=== PATIENT | female | born 1965 | race Caucasian/White ===

== ENCOUNTER 2021-03-05 23:37 | Emergency (ER) | payer MEDICARE, OTHER ==
[~2021-03-05] VITALS: Ht 152.4 cm; Wt 142.9 kg
[~2021-03-05 23:37] MED LIST: ABILIFY15 MG PO; CELEBREX100 MG PO; CYMBALTA30 MG PO; CYMBALTA60 MG PO; DITROPAN XL5 MG PO; HYDRALAZINE HCL25 MG PO; HYDROXYZINE HCL50 MG PO; LEVOTHYROXINE75 MCG PO; OMEPRAZOLE20 MG PO; OMEPRAZOLE40 MG PO; PATANASE30.5 GM; SYMBICORT 160-4.6 GM INH; VICTOZA 3-0.6 MG/0.1 INJ; Z.0.EFFEXOR75 MG PO; Z.0.HYDROXYCHLOROQ20 PO; Z.0.LISINOPRIL10 MG PO; Z.0.MELOXICAM15 MG PO; Z.0.SIMVASTATIN10 MG PO; Z.0.TRAZODONE HCL50 PO; Z.0.VERAMYST10 GM INH; Z.1.TIZANIDINE HCL4 PO; Z.2.METFORMIN HCL500 PO; [UNRECOGNIZED DRUG - OTHER]
[2021-03-06] MEDS: BELLADONNA ALK/PHENOBARBITAL 5 ML UDC PO ONE (00:26)
[2021-03-06] MEDS: MAGNESIUM/ALUMINUM/SIMETHICONE 30 ML UDC PO ONE (00:26)
[2021-03-06] MEDS: LIDOCAINE VISC 2% SOLN 15 ML UDC PO ONE (00:26)
[2021-03-06] MEDS: ONDANSETRON HCL INJ 2MG/ML 2ML 2 MG/ML VIAL IV STA (00:26)
[2021-03-06] MEDS ORDERED: BELLADONNA ALK/PHENOBARBITAL 5 ML UDC ONE (00:30)
[2021-03-06] MEDS ORDERED: MAGNESIUM/ALUMINUM/SIMETHICONE 30 ML UDC ONE (00:30)
[2021-03-06] MEDS ORDERED: ONDANSETRON HCL INJ 2MG/ML 2ML 2 MG/ML VIAL ONE ×2 (00:30→03:40)
[2021-03-06 00:46] LABS: BASOPHILS # (AUTO) 0.1 (0.0-0.1); BASOPHILS % 0.7 % (0.0-1.0); EOSINOPHILS # (AUTO) 0.3 (0.0-0.4); EOSINOPHILS % 1.9 % (0.0-6.0); HEMOGLOBIN 13.9 g/dL (12.0-16.0); LYMPHOCYTES # (AUTO) 3.5 (1.0-3.2); LYMPHOCYTES % 22.6 % (18.0-39.1); MEAN CORPUSCULAR HEMOGLOBIN 30.2 pg (28-32); MEAN CORPUSCULAR HGB CONC 32.3 g/dL (31-35); MEAN CORPUSCULAR VOLUME 93.5 fL (81-99); MONOCYTES # (AUTO) 1.4 (0.2-0.8); MONOCYTES % 9.1 % (4.4-11.3); NEUTROPHILS # (AUTO) 10.1 (2.1-6.9); NEUTROPHILS % 65.2 % (38.7-80.0); PLATELET COUNT 421 x10e3/uL (140-360); RED CELL DISTRIBUTION WIDTH 13.9 % (11.7-14.4)
[2021-03-06 00:58] LABS: AMYLASE 21 U/L (25-125); LIPASE 18 U/L (8-78)
[2021-03-06 01:23] LABS: ALBUMIN 3.7 g/dL (3.5-5.0); ALBUMIN/GLOBULIN RATIO 1.1 (0.8-2.0); CALCIUM 9.1 mg/dL (8.4-10.2)
[2021-03-06 01:29] LABS: CREATINE KINASE MB 1.9 ng/mL (0-5.0)
[2021-03-06 01:37] LABS: ANION GAP 17.5 mmol/L (8-16); CREATININE, SERUM 0.74 mg/dL (0.57-1.11); POTASSIUM 3.5 mmol/L (3.5-5.1)
[2021-03-06] MEDS ORDERED: IOPAMIDOL 370 MG/ML 200 ML INFUS..BTL INJ ONE (02:17)
[2021-03-06] MEDS ORDERED: SODIUM CHLORIDE 0.9% 50ML 50 ML ONE (02:17)
== END 2021-03-06 03:00 | disposition home or self-care (01) ==
LOC: ER 03-06 00:16
DX: K29.70 Gastritis, unspecified, without bleeding (principal); G89.29 Other chronic pain; R10.10 Upper abdominal pain, unspecified; M54.9 Dorsalgia, unspecified; K21.9 Gastro-esophageal reflux disease without esophagitis; E03.9 Hypothyroidism, unspecified; J45.909 Unspecified asthma, uncomplicated; M19.90 Unspecified osteoarthritis, unspecified site; R06.81 Apnea, not elsewhere classified; F31.9 Bipolar disorder, unspecified; Z79.899 Other long term (current) drug therapy; Z98.84 Bariatric surgery status
CPT/HCPCS: 36415; 74177; 80053; 82150; 82550; 82553; 83690; 84484; 85025; 93005; 99284; C9113; J2405; Q9967

== ENCOUNTER 2021-03-09 17:32 | Emergency (ER) | payer OTHER ==
[~2021-03-09] VITALS: Ht 152.4 cm; Wt 142.9 kg
[2021-03-09] MEDS ORDERED: DEXAMETHASONE SOD PHOS 10 MG/1 ML VIAL IV ONE (18:15)
[2021-03-09] MEDS ORDERED: ALBUTEROL/IPRATROPIUM 3 ML NEB NEB ONE (18:15)
[2021-03-09] MEDS ORDERED: SODIUM CHLORIDE 0.9% IV ONE (18:30)
[2021-03-09] MEDS ORDERED: DEXAMETHASONE PHOS IV ONE (18:30)
[2021-03-09] MEDS ORDERED: DEXAMETHASONE SOD PHOS 10 MG/1 ML VIAL IM ONE (18:45)
== END 2021-03-09 19:10 | disposition home or self-care (01) ==
LOC: ER 18:07
DX: J45.901 Unspecified asthma with (acute) exacerbation (principal); E03.9 Hypothyroidism, unspecified; F31.9 Bipolar disorder, unspecified; G47.30 Sleep apnea, unspecified; Z98.84 Bariatric surgery status
CPT/HCPCS: 94640; 99282; J1100